=== PATIENT | male | born 1970 | race African-American/Black ===

== ENCOUNTER 2018-02-20 10:55 | Emergency (ER) | payer OTHER ==
[~2018-02-20] VITALS: Ht 185.4 cm; Wt 110.0 kg
[~2018-02-20 10:55] MED LIST: AMLO10TA6 PO
[2018-02-20] MEDS ORDERED: BENA5TAB3 PO (11:13)
[2018-02-20] MEDS ORDERED: ONDANSETRON 2MG/ML, 2ML ONE (11:29)
[2018-02-20] MEDS ORDERED: SODIUM CHLORIDE 0.9% 1,000ML IVBOLUS ONE (11:30)
[2018-02-20] MEDS ORDERED: ONDANSETRON 2MG/ML, 2ML IVPush ONE (11:30)
[2018-02-20 12:27] LABS: ALBUMIN 4.1 g/dL (3.4-5.0); ANION GAP 9 mmol/L (5-15); CALCIUM 9.2 mg/dL (8.5-10.1); CHLORIDE 106 mmol/L (98-107); CREATININE 1.95 mg/dL (0.7-1.3)
[2018-02-20 14:24] LABS: MEAN CORPUSCULAR HEMOGLOBIN 31.5 pg (27.5-34.5); MEAN CORPUSCULAR HGB CONC 33.9 g/dL (33.2-36.2); MEAN CORPUSCULAR VOLUME 93.2 fL (81-97); RED BLOOD COUNT 5.17 x10^6/uL (4.38-5.82); RED CELL DISTRIBUTION WIDTH 14.1 % (9.4-14.8)
[2018-02-20 14:26] LABS: <PLATELET ESTIMATE> DECREASED; BASOPHILS # (AUTO) 0.03 x10^3/uL (0-0.1); BASOPHILS % (AUTO) 0 % (0-1); EOSINOPHILS # (AUTO) 0.02 x10^3/uL (0-0.4); EOSINOPHILS % (AUTO) 0 % (1-7); GIANT PLATELETS 1+; LARGE PLATELETS 2+; LYMPHOCYTES # (AUTO) 1.06 x10^3/uL (1-3.4); LYMPHOCYTES % (AUTO) 9 % (22-44); MD MORPH REVIEW ONLY; MEAN PLATELET VOLUME 11.9 fL (7.4-10.4); MONOCYTES # (AUTO) 0.77 x10^3/uL (0.2-0.8); MONOCYTES % (AUTO) 6 % (2-9); NEUTROPHILS # (AUTO) 10.66 x10^3/uL (1.8-6.8); NEUTROPHILS % (AUTO) 85 % (42-75); PLATELET COUNT 118 x10^3/uL (130-400)
[2018-02-20 14:27] LABS: <RBC MORPHOLOGY> NORMAL
[2018-02-20 15:03] VITALS: BP 143/84
== END 2018-02-20 15:04 | disposition home or self-care (01) ==
LOC: ED 13:00
DX: R11.2 Nausea with vomiting, unspecified (principal); I12.9 Hypertensive chronic kidney disease with stage 1 through stage 4 chronic kidney disease, or unspecified chronic kidney disease; N18.9 Chronic kidney disease, unspecified
CPT/HCPCS: 36415; 80048; 82040; 85025; 93005; 96361; 96374; 99285; J2405; J7030